=== PATIENT | male | born 1970 | race Caucasian/White ===

== ENCOUNTER 2016-09-22 15:40 | Emergency (ER) | payer MEDICAID ==
[~2016-09-22] VITALS: Ht 167.6 cm; Wt 84.4 kg
[~2016-09-22 15:40] MED LIST: AML5T PO; ASPI81CH43; ATE25T PO; BUPRTAB PO; LITH150C6 PO; RISP0.5T12 PO; TRAZ100T2 PO; VENL37.572 PO
[2016-09-22 15:44] VITALS: BP 202/100
[2016-09-22] MEDS ORDERED: cloNIDine HCL 0.1 MG TAB ONE (19:41)
== END 2016-09-22 18:25 | disposition left against medical advice (07) ==
LOC: EDBD 15:40 → ER 15:42
DX: I10 Essential (primary) hypertension (principal); R51 Headache; Z53.21 Procedure and treatment not carried out due to patient leaving prior to being seen by health care provider

== ENCOUNTER 2016-09-22 19:19 | Emergency (ER) | payer MEDICAID ==
[~2016-09-22] VITALS: Ht 167.6 cm; Wt 79.8 kg
[2016-09-22] MEDS ORDERED: cloNIDine HCL 0.1 MG TAB PO ONE (19:45)
[2016-09-22 20:16] LABS: Basophils # (auto) 0 uL; Basophils % (auto) 0.3 % (0.0-2.0); Eosinophils # (auto) 0.2 uL; Eosinophils % (auto) 1.7 % (0.0-7.0); Hematocrit 44.1 % (41.0-53.0); Hemoglobin 14.8 g/dL (13.5-17.5); Lymphocytes # (auto) 1.6 uL; Mean Corpuscular Hemoglobin 30.2 pg (28.0-32.0); Mean Corpuscular Hgb Conc. 33.6 g/dL (32.0-36.0); Mean Platelet Volume 8.2 fL (7.4-10.4); Monocytes # (auto) 0.7 uL; Neutrophils # (auto) 7.3 uL; Platelet Count (auto) 253 10^3/uL (140-450); Red Cell Distribution Width 13.8 % (11.6-16.0); White Blood Cell 9.8 10^3/uL (4.4-10.8)
[2016-09-22 20:42] LABS: Albumin 4.1 g/dL (3.4-5.0); BUN/Creatinine Ratio 13.1; Bilirubin, Total 0.4 mg/dL (0.2-1.0); Magnesium 2.4 mg/dL (1.6-2.6); Potassium 3.5 mmol/L (3.5-5.1); Total Protein 7.7 g/dL (6.4-8.2)
[2016-09-22 20:48] LABS: B-Type Natriuretic Peptide 115.64 pg/mL (0-100); Temperature: 21.9 C (20.0-25.0)
[2016-09-23] MEDS ORDERED: LABETALOL HCL 200 MG TAB PO ONE ×2 (01:15→02:45)
[2016-09-23 02:50] LABS: Urine Bilirubin Negative (Negative); Urine Blood Negative /uL (Negative); Urine Color Yellow (Yellow); Urine Glucose Normal (Normal); Urine Ketone Negative (Negative); Urine Mucus FEW (None Seen); Urine Nitrite Negative (Negative); Urine RBC 1 /hpf (0 - 3); Urine Squamous Epithelial Cell FEW /hpf (<5); Urine Urobilinogen Normal (Negative)
[2016-09-23] MEDS ORDERED: ENALAPRILAT 1.25 MG/ML-1ML VIAL IV ONE (04:15)
[2016-09-23] MEDS ORDERED: LORazepam 2MG/ML-1ML VIAL IV ONE (06:00)
[2016-09-23] MEDS ORDERED: BENAZEPRIL HCL 10 MG TAB PO ONE (07:30)
[2016-09-23] MEDS ORDERED: HCTZ 25 MG TAB PO ONE (07:30)
[2016-09-23 08:15] VITALS: BP 160/98
== END 2016-09-23 09:35 | disposition home or self-care (01) ==
LOC: ER 19:22
DX: I11.0 Hypertensive heart disease with heart failure (principal); I50.9 Heart failure, unspecified; J44.9 Chronic obstructive pulmonary disease, unspecified; F20.9 Schizophrenia, unspecified; F41.9 Anxiety disorder, unspecified; F17.210 Nicotine dependence, cigarettes, uncomplicated; F12.10 Cannabis abuse, uncomplicated; F15.10 Other stimulant abuse, uncomplicated; Z79.82 Long term (current) use of aspirin; Z59.0 Homelessness; Z88.0 Allergy status to penicillin
CPT/HCPCS: 36415; 71010; 80053; 81001; 83735; 83880; 84484; 85025; 85049; 93005; 96374; 96375; 99285; G0434; J2060

== ENCOUNTER 2016-11-06 22:36 | Inpatient (IN) | payer MEDICAID ==
[~2016-11-06] VITALS: Ht 170.2 cm; Wt 86.2 kg
[2016-11-06] MEDS ORDERED: cloNIDine HCL 0.1 MG TAB PO ONE (23:15)
[2016-11-06 23:23] LABS: Basophils # (auto) 0.1 uL; Basophils % (auto) 0.7 % (0.0-2.0); Eosinophils # (auto) 0.3 uL; Eosinophils % (auto) 2.4 % (0.0-7.0); Hematocrit 46.3 % (41.0-53.0); Lymphocytes # (auto) 1.4 uL; Lymphocytes % (auto) 12.9 % (10.0-50.0); Mean Corpuscular Hgb Conc. 34.6 g/dL (32.0-36.0); Mean Corpuscular Volume 89.7 fL (80.0-100.0); Mean Platelet Volume 8.9 fL (7.4-10.4); Monocytes % (auto) 8.9 % (0.0-12.0); Neutrophils # (auto) 8.3 uL; Neutrophils % (auto) 75.1 % (37.0-80.0); Platelet Count (auto) 213 10^3/uL (140-450); Red Cell Distribution Width 14.6 % (11.6-16.0); White Blood Cell 11.1 10^3/uL (4.4-10.8)
[2016-11-06 23:39] LABS: INR 1.06 (0.9-1.15); Partial Thromboplastin Time 27.8 sec (22.64-33.71); Prothrombin Time 10.9 sec (9.37-12.3)
[2016-11-06 23:51] LABS: Albumin 3.5 g/dL (3.4-5.0); BUN/Creatinine Ratio 9.6; Calcium 8.1 mg/dL (8.5-10.1); Magnesium 2.1 mg/dL (1.6-2.6); Potassium 3.8 mmol/L (3.5-5.1)
[2016-11-06 23:56] LABS: Bilirubin, Total 0.2 mg/dL (0.2-1.0)
[2016-11-06 23:59] LABS: Temperature: 20.4 C (20.0-25.0)
[2016-11-07] MEDS ORDERED: LORazepam 0.5 MG TAB ONE (00:11)
[2016-11-07] MEDS ORDERED: LORazepam 0.5 MG TAB PO ONE (00:15)
[2016-11-07] MEDS ORDERED: LABETALOL HCL 200 MG TAB PO ONE (04:30)
[2016-11-07] MEDS ORDERED: HYDROcodone-ACET 5/325MG TAB PO PRN (06:45)
[2016-11-07] MEDS ORDERED: ONDANSETRON HCL 4 MG/2 ML VIAL IV PRN (06:45)
[2016-11-07] MEDS ORDERED: ACETAMINOPHEN 325 MG TAB PO PRN (06:45)
[2016-11-07] MEDS: amLODIPine BESYLATE 5 MG TAB PO SCH ×2 (06:46→10:00)
[2016-11-07 06:58] LABS: Urine Bilirubin Negative (Negative); Urine Blood Negative /uL (Negative); Urine Color Yellow (Yellow); Urine Glucose Normal (Normal); Urine Ketone Negative (Negative); Urine Nitrite Negative (Negative); Urine RBC <1 /hpf (0 - 3); Urine Urobilinogen Normal (Negative); Urine pH 6.5 (5.0-8.0)
[2016-11-07] MEDS: ATENOLOL 25 MG TAB PO SCH ×2 (08:29→22:15)
[2016-11-07] MEDS: FAMOTIDINE 20 MG TAB PO SCH ×2 (09:31→22:14)
[2016-11-07] MEDS: LITHIUM CARBONATE 300 MG TAB PO SCH ×2 (09:31→22:14)
[2016-11-07] MEDS: ENOXAPARIN SOD 40 MG/0.4 ML SYRINGE SC SCH (09:32)
[2016-11-07] MEDS: risperiDONE 1 MG TAB PO SCH (09:32)
[2016-11-07] MEDS: ASPirin 81 mg TAB PO SCH (09:32)
[2016-11-07] MEDS: cloNIDine HCL 0.1 MG TAB PO PRN ×2 (11:07→22:15)
[2016-11-07] MEDS ORDERED: hydrALAZINE HCL 20 MG/ML VL ONE (11:15)
[2016-11-07] MEDS ORDERED: buPROPion HCL 100 MG TAB PO ONE (11:30)
[2016-11-07] MEDS ORDERED: LEVOFLOXACIN 250 MG TAB PO ONE (11:30)
[2016-11-07] MEDS ORDERED: hydrALAZINE HCL 20 MG/ML VL IV PRN (11:30)
[2016-11-07 15:30] VITALS: BP 139/83
[2016-11-07] MEDS: traZODone HCL 50 MG TAB PO SCH (22:14)
[2016-11-08 05:12] VITALS: BP 157/89
[2016-11-08] MEDS: buPROPion HCL 100 MG TAB PO SCH ×3 (05:57→22:09)
[2016-11-08] MEDS: cloNIDine HCL 0.1 MG TAB PO PRN (06:04)
[2016-11-08 06:35] LABS: Basophils # (auto) 0.1 uL; Basophils % (auto) 0.8 % (0.0-2.0); Eosinophils # (auto) 0.3 uL; Eosinophils % (auto) 3.7 % (0.0-7.0); Hematocrit 46.3 % (41.0-53.0); Hemoglobin 16.1 g/dL (13.5-17.5); Lymphocytes # (auto) 1.6 uL; Mean Corpuscular Hemoglobin 30.9 pg (28.0-32.0); Mean Corpuscular Hgb Conc. 34.8 g/dL (32.0-36.0); Mean Corpuscular Volume 88.7 fL (80.0-100.0); Mean Platelet Volume 8.8 fL (7.4-10.4); Monocytes # (auto) 0.6 uL; Monocytes % (auto) 7.5 % (0.0-12.0); Neutrophils # (auto) 5.6 uL; Platelet Count (auto) 204 10^3/uL (140-450); Red Cell Distribution Width 14.3 % (11.6-16.0); White Blood Cell 8.2 10^3/uL (4.4-10.8)
[2016-11-08 07:38] LABS: Albumin 3.4 g/dL (3.4-5.0); Alkaline Phosphatase 92 U/L (45-117); Anion Gap 10 (5-15); Aspartate Aminotransferase 16 U/L (15-37); BUN/Creatinine Ratio 10.3; Bilirubin, Total 0.4 mg/dL (0.2-1.0); Blood Urea Nitrogen 13 mg/dL (7-18); Calcium 9.2 mg/dL (8.5-10.1); Carbon Dioxide 28 mmol/L (21-32); Chloride 107 mmol/L (98-107); GFR African American 79 mL/min; GFR Non-African American 65 mL/min; Glucose 88 mg/dL (74-106); Sodium 145 mmol/L (136-145)
[2016-11-08 09:00] VITALS: BP 161/106
[2016-11-08] MEDS ORDERED: LEVOFLOXACIN 250 MG TAB PO SCH (10:00)
[2016-11-08] MEDS ORDERED: buPROPion HCL 100 MG TAB PO SCH (10:00)
[2016-11-08] MEDS: risperiDONE 1 MG TAB PO SCH (10:10)
[2016-11-08] MEDS: FAMOTIDINE 20 MG TAB PO SCH ×2 (10:10→22:09)
[2016-11-08] MEDS: ASPirin 81 mg TAB PO SCH (10:10)
[2016-11-08] MEDS: ENOXAPARIN SOD 40 MG/0.4 ML SYRINGE SC SCH (10:10)
[2016-11-08] MEDS: LITHIUM CARBONATE 300 MG TAB PO SCH ×2 (10:10→22:09)
[2016-11-08] MEDS: amLODIPine BESYLATE 5 MG TAB PO SCH (10:11)
[2016-11-08] MEDS: ATENOLOL 25 MG TAB PO SCH ×2 (10:11→22:12)
[2016-11-08] MEDS ORDERED: HCTZ 25 MG TAB PO ONE (10:45)
[2016-11-08 13:00] VITALS: BP 140/92
[2016-11-08] MEDS: VENLAFAXINE HCL 37.5mg XR cap PO SCH (13:34)
[2016-11-08 17:00] VITALS: BP 148/85
[2016-11-08 20:00] VITALS: BP 96/52
[2016-11-08 22:00] VITALS: BP 150/88
[2016-11-08] MEDS: traZODone HCL 50 MG TAB PO SCH (22:08)
[2016-11-09 05:00] VITALS: BP 144/82
[2016-11-09] MEDS: buPROPion HCL 100 MG TAB PO SCH ×2 (05:41→13:18)
[2016-11-09 09:00] VITALS: BP 178/106
[2016-11-09] MEDS: LITHIUM CARBONATE 300 MG TAB PO SCH (09:19)
[2016-11-09] MEDS: ATENOLOL 25 MG TAB PO SCH (09:19)
[2016-11-09] MEDS: risperiDONE 1 MG TAB PO SCH (09:20)
[2016-11-09] MEDS: ASPirin 81 mg TAB PO SCH (09:20)
[2016-11-09] MEDS: amLODIPine BESYLATE 5 MG TAB PO SCH (09:20)
[2016-11-09] MEDS: VENLAFAXINE HCL 37.5mg XR cap PO SCH (09:21)
[2016-11-09] MEDS: ENOXAPARIN SOD 40 MG/0.4 ML SYRINGE SC SCH (09:21)
[2016-11-09] MEDS: FAMOTIDINE 20 MG TAB PO SCH (09:21)
[2016-11-09] MEDS ORDERED: HCTZ 25 MG TAB PO SCH (10:00)
[2016-11-09 13:00] VITALS: BP 157/99
[2016-11-09 17:00] VITALS: BP 152/92
== END 2016-11-09 18:30 | disposition home or self-care (01) | DRG 194 ==
LOC: EDBD 22:36 → ER 22:40 → OVERFLOW 22:41 → CENTRAL 11-07 15:00
PROVIDERS: ADMIT Internal Medicine; ATTEND Internal Medicine
DX: I11.0 Hypertensive heart disease with heart failure (principal); J44.9 Chronic obstructive pulmonary disease, unspecified; I50.9 Heart failure, unspecified; F31.9 Bipolar disorder, unspecified; F12.90 Cannabis use, unspecified, uncomplicated; R74.8 Abnormal levels of other serum enzymes; F17.210 Nicotine dependence, cigarettes, uncomplicated; D64.9 Anemia, unspecified; F20.9 Schizophrenia, unspecified; F15.90 Other stimulant use, unspecified, uncomplicated; Z59.0 Homelessness; Z91.14 Patient's other noncompliance with medication regimen; Z88.0 Allergy status to penicillin; Z79.899 Other long term (current) drug therapy; Z79.82 Long term (current) use of aspirin; Z82.49 Family history of ischemic heart disease and other diseases of the circulatory system; Z83.3 Family history of diabetes mellitus
CPT/HCPCS: 36415; 80053; 80178; 81001; 83735; 83880; 84443; 84484; 85025; 85610; 85730; 87086; 93005; 96372; G0434

== ENCOUNTER 2017-01-06 17:27 | Observation (INO) | payer MEDICAID ==
[~2017-01-06] VITALS: Ht 167.6 cm; Wt 81.6 kg
[~2017-01-06 17:27] MED LIST changes: -VENL37.572 PO
[2017-01-06] MEDS ORDERED: SODIUM CHLORIDE 0.9% 2,000 ML IV ONE (18:00)
[2017-01-06 18:13] LABS: Basophils # (auto) 0 uL; Basophils % (auto) 0.3 % (0.0-2.0); Eosinophils # (auto) 0.1 uL; Eosinophils % (auto) 0.7 % (0.0-7.0); Hematocrit 40.4 % (41.0-53.0); Hemoglobin 13.6 g/dL (13.5-17.5); Lymphocytes # (auto) 1.1 uL; Lymphocytes % (auto) 9.2 % (10.0-50.0); Mean Corpuscular Hemoglobin 30.3 pg (28.0-32.0); Mean Corpuscular Hgb Conc. 33.6 g/dL (32.0-36.0); Mean Corpuscular Volume 89.9 fL (80.0-100.0); Mean Platelet Volume 9.5 fL (7.4-10.4); Neutrophils # (auto) 10.1 uL; Neutrophils % (auto) 81.8 % (37.0-80.0); Platelet Count (auto) 216 10^3/uL (140-450); White Blood Cell 12.3 10^3/uL (4.4-10.8)
[2017-01-06 18:30] LABS: Albumin 3.5 g/dL (3.4-5.0); BUN/Creatinine Ratio 12.3; Bilirubin, Total 0.6 mg/dL (0.2-1.0); Calcium 8.8 mg/dL (8.5-10.1); Total Protein 7.1 g/dL (6.4-8.2)
[2017-01-06] MEDS ORDERED: SODIUM CHLORIDE 0.9% 1,000 ML IVB ONE (19:49)
[2017-01-06] MEDS ORDERED: POTASSIUM CHL 20 Meq TABLET PO ONE (20:45)
[2017-01-06 20:49] LABS: Urine Bilirubin Negative (Negative); Urine Blood Negative /uL (Negative); Urine Color Yellow (Yellow); Urine Glucose Normal (Normal); Urine Ketone TRACE (Negative); Urine Mucus FEW (None Seen); Urine Nitrite Negative (Negative); Urine RBC <1 /hpf (0 - 3); Urine pH 5.5 (5.0-8.0)
[2017-01-07] MEDS ORDERED: cloNIDine HCL 0.1 MG TAB PO ONE (07:45)
[2017-01-07] MEDS ORDERED: amLODIPine BESYLATE 5 MG TAB PO ONE (09:15)
[2017-01-07] MEDS ORDERED: amLODIPine BESYLATE 5 MG TAB ONE (09:21)
[2017-01-07 11:58] LABS: Basophils # (auto) 0 uL; Basophils % (auto) 0.5 % (0.0-2.0); Eosinophils # (auto) 0.2 uL; Eosinophils % (auto) 2.6 % (0.0-7.0); Hematocrit 40.1 % (41.0-53.0); Hemoglobin 13.5 g/dL (13.5-17.5); Lymphocytes # (auto) 1.4 uL; Lymphocytes % (auto) 17.3 % (10.0-50.0); Mean Corpuscular Hemoglobin 30.3 pg (28.0-32.0); Mean Corpuscular Hgb Conc. 33.7 g/dL (32.0-36.0); Mean Corpuscular Volume 90.1 fL (80.0-100.0); Mean Platelet Volume 8.8 fL (7.4-10.4); Monocytes # (auto) 0.6 uL; Neutrophils # (auto) 5.8 uL; Neutrophils % (auto) 72.6 % (37.0-80.0); Platelet Count (auto) 201 10^3/uL (140-450); White Blood Cell 7.9 10^3/uL (4.4-10.8)
[2017-01-07 12:30] LABS: Acetaminophen 2.5 ug/mL (10-30); Salicylate 2.4 mg/dL (2.8-20.0)
[2017-01-07 12:31] LABS: Albumin 2.9 g/dL (3.4-5.0); Alkaline Phosphatase 81 U/L (45-117); Anion Gap 8 (5-15); Aspartate Aminotransferase 34 U/L (15-37); BUN/Creatinine Ratio 10.9; Bilirubin, Total 0.6 mg/dL (0.2-1.0); Blood Urea Nitrogen 13 mg/dL (7-18); Calcium 8.4 mg/dL (8.5-10.1); Carbon Dioxide 28 mmol/L (21-32); Chloride 108 mmol/L (98-107); GFR African American 84 mL/min; GFR Non-African American 69 mL/min; Glucose 96 mg/dL (74-106); Potassium 3.8 mmol/L (3.5-5.1); Sodium 144 mmol/L (136-145); Total Protein 6.2 g/dL (6.4-8.2)
[2017-01-07 15:44] VITALS: BP 144/87
== END 2017-01-07 16:51 | disposition home or self-care (01) | DRG 756 ==
LOC: ER 17:33 → OVERFLOW 19:51
PROVIDERS: ADMIT Family Medicine; ATTEND Family Medicine
DX: R45.851 Suicidal ideations (principal); F31.9 Bipolar disorder, unspecified; F17.210 Nicotine dependence, cigarettes, uncomplicated
CPT/HCPCS: 36415; 71010; 80053; 80307; 80320; 80329; 81001; 85025; 93005; 96360; 96361; 99285; G0378; J7030

== ENCOUNTER 2017-01-12 04:43 | Emergency (ER) | payer MEDICAID ==
[~2017-01-12] VITALS: Ht 167.6 cm; Wt 81.6 kg
[2017-01-12] MEDS ORDERED: ASPirin 81 mg TAB PO ONE (05:00)
[2017-01-12] MEDS ORDERED: MORPHINE SULF INJ 2 MG/ML SYRINGE 1ML IV ONE (05:00)
[2017-01-12] MEDS ORDERED: ONDANSETRON HCL 4 MG/2 ML VIAL IV ONE (05:00)
[2017-01-12 05:34] LABS: BUN/Creatinine Ratio 8.9; Potassium 3.5 mmol/L (3.5-5.1)
[2017-01-12 05:36] LABS: Basophils # (auto) 0.1 uL; Eosinophils # (auto) 0.2 uL; Eosinophils % (auto) 2.9 % (0.0-7.0); Hemoglobin 15.4 g/dL (13.5-17.5); Lymphocytes # (auto) 0.9 uL; Lymphocytes % (auto) 12.2 % (10.0-50.0); Mean Corpuscular Hemoglobin 30.5 pg (28.0-32.0); Mean Corpuscular Hgb Conc. 33.4 g/dL (32.0-36.0); Mean Corpuscular Volume 91.2 fL (80.0-100.0); Mean Platelet Volume 10.1 fL (7.4-10.4); Monocytes # (auto) 0.5 uL; Monocytes % (auto) 6.5 % (0.0-12.0); Neutrophils % (auto) 77.4 % (37.0-80.0); Platelet Count (auto) 107 10^3/uL (140-450); Red Cell Distribution Width 14.6 % (11.6-16.0); White Blood Cell 7.7 10^3/uL (4.4-10.8)
[2017-01-12 05:39] LABS: Bilirubin, Total 0.4 mg/dL (0.2-1.0); Total Protein 7.8 g/dL (6.4-8.2)
[2017-01-12 05:51] LABS: INR 1.03 (0.9-1.15); Partial Thromboplastin Time 24.7 sec (22.64-33.71); Prothrombin Time 11.1 sec (9.37-12.3)
[2017-01-12 06:25] LABS: B-Type Natriuretic Peptide 73.7 pg/mL (0-100)
[2017-01-12] MEDS ORDERED: SODIUM CHLORIDE 0.9% 250 ML IV ONE (07:55)
[2017-01-12] MEDS ORDERED: cloNIDine HCL 0.1 MG TAB PO ONE (08:00)
[2017-01-12 12:05] VITALS: BP 154/99
== END 2017-01-12 13:34 | disposition home or self-care (01) ==
LOC: ER 04:43
DX: R07.89 Other chest pain (principal); I10 Essential (primary) hypertension; F17.210 Nicotine dependence, cigarettes, uncomplicated; F12.10 Cannabis abuse, uncomplicated; F15.10 Other stimulant abuse, uncomplicated; F14.10 Cocaine abuse, uncomplicated; R06.02 Shortness of breath; Z91.14 Patient's other noncompliance with medication regimen; Z79.82 Long term (current) use of aspirin; Z88.0 Allergy status to penicillin; Z59.0 Homelessness
CPT/HCPCS: 36415; 71010; 80053; 83735; 83880; 84484; 85025; 85610; 85730; 93005; 94761

== ENCOUNTER 2017-01-13 03:00 | Emergency (ER) | payer MEDICAID ==
[~2017-01-13] VITALS: Ht 172.7 cm; Wt 95.3 kg
[2017-01-13] MEDS ORDERED: cloNIDine HCL 0.1 MG TAB ONE (03:32)
[2017-01-13] MEDS ORDERED: cloNIDine HCL 0.1 MG TAB PO ONE (04:00)
[2017-01-13 05:40] VITALS: BP 157/121
== END 2017-01-13 06:12 ==
LOC: EEVIPCON 03:00 → ER 03:00
DX: I10 Essential (primary) hypertension (principal); F12.10 Cannabis abuse, uncomplicated; F15.10 Other stimulant abuse, uncomplicated; F14.10 Cocaine abuse, uncomplicated; F17.210 Nicotine dependence, cigarettes, uncomplicated; Z91.14 Patient's other noncompliance with medication regimen; Z59.0 Homelessness; Z79.82 Long term (current) use of aspirin; Z88.0 Allergy status to penicillin

== ENCOUNTER 2017-03-19 11:44 | Inpatient (IN) | payer MEDICAID ==
[~2017-03-19] VITALS: Ht 170.2 cm; Wt 97.5 kg
[2017-03-19 12:42] LABS: Allen Test Yes; Base Excess 0.9 mmol/L (-2.0-2.0); Blood COHb 5.5 % (0.5-1.5); Blood MetHb 0.2 % (0.0-1.5); HCO3 25.1 mmol/L (22-26.0); HHb 14.1 % (0.0-5.0); MODE ROOM AIR; O2Hb 80.2 % (94.0-97.0); PCO2 38.8 mmHg (35.0-45.0); PCO2(T) 38.8 mmHg (35.0-45.0); PO2 48.9 mmHg (80.0-100.0); PO2(T) 48.9 mmHg (80.0-100.0); Sample Type Arterial; pH 7.429 (7.350-7.450)
[2017-03-19 12:44] LABS: Basophils # (auto) 0 uL; Basophils % (auto) 0.5 % (0.0-2.0); CONDITION Y; Eosinophils # (auto) 0 uL; Eosinophils % (auto) 0.4 % (0.0-7.0); Hematocrit 41.9 % (41.0-53.0); Hemoglobin 14.3 g/dL (13.5-17.5); Lymphocytes # (auto) 1.2 uL; Lymphocytes % (auto) 15.4 % (10.0-50.0); Mean Corpuscular Hemoglobin 30.8 pg (28.0-32.0); Mean Corpuscular Hgb Conc. 34.1 g/dL (32.0-36.0); Mean Corpuscular Volume 90.3 fL (80.0-100.0); Mean Platelet Volume 8.9 fL (7.4-10.4); Monocytes # (auto) 0.5 uL; Monocytes % (auto) 5.9 % (0.0-12.0); Neutrophils # (auto) 6.1 uL; Neutrophils % (auto) 77.8 % (37.0-80.0); Platelet Count (auto) 181 10^3/uL (140-450); Red Cell Distribution Width 14.3 % (11.6-16.0); White Blood Cell 7.8 10^3/uL (4.4-10.8)
[2017-03-19 13:10] LABS: Albumin 3.3 g/dL (3.4-5.0); Anion Gap 9 (5-15); Blood Urea Nitrogen 17 mg/dL (7-18); Calcium 8.5 mg/dL (8.5-10.1); Carbon Dioxide 26 mmol/L (21-32); Chloride 111 mmol/L (98-107); Glucose 65 mg/dL (74-106); Magnesium 2.3 mg/dL (1.6-2.6); Potassium 3.6 mmol/L (3.5-5.1); Sodium 146 mmol/L (136-145)
[2017-03-19 13:12] LABS: Acetaminophen < 2.0 ug/mL (10-30)
[2017-03-19 13:13] LABS: Aspartate Aminotransferase 10 U/L (15-37); BUN/Creatinine Ratio 16.3; GFR African American 98 mL/min; GFR Non-African American 81 mL/min
[2017-03-19 13:15] LABS: Alkaline Phosphatase 83 U/L (45-117); Bilirubin, Total 0.2 mg/dL (0.2-1.0); Total Protein 6.8 g/dL (6.4-8.2)
[2017-03-19] MEDS ORDERED: MORPHINE SULF INJ 2 MG/ML SYRINGE 1ML IV PRN (15:15)
[2017-03-19] MEDS ORDERED: NITROGLYCERIN 0.4 MG SL TAB SL PRN (15:15)
[2017-03-19] MEDS: D5W/SOD CHL 0.45%/KCL 20MEQ 1,000 ML IV SCH (15:45)
[2017-03-19] MEDS: LABETALOL HCL 5 MG/ML 4ML SYRINGE IV PRN ×2 (15:45→18:27)
[2017-03-19] MEDS: hydrALAZINE HCL 20 MG/ML VL IV PRN (18:27)
[2017-03-19 22:29] LABS: Urine Bilirubin Negative (Negative); Urine Blood Negative /uL (Negative); Urine Color Yellow (Yellow); Urine Glucose Normal (Normal); Urine Ketone Negative (Negative); Urine Nitrite Negative (Negative); Urine RBC <1 /hpf (0 - 3); Urine Urobilinogen Normal (Negative); Urine pH 6.5 (5.0-8.0)
[2017-03-20] MEDS: D5W/SOD CHL 0.45%/KCL 20MEQ 1,000 ML IV SCH ×3 (01:19→21:15)
[2017-03-20] MEDS: hydrALAZINE HCL 20 MG/ML VL IV PRN ×2 (03:22→09:42)
[2017-03-20] MEDS ORDERED: HALOPERIDOL LACTATE 5 MG/ML INJ VIAL ONE (04:31)
[2017-03-20] MEDS ORDERED: HALOPERIDOL LACTATE 5 MG/ML INJ VIAL IM ONE (04:45)
[2017-03-20] MEDS ORDERED: LORazepam 2MG/ML-1ML VIAL IV ONE (05:00)
[2017-03-20 09:45] LABS: Basophils # (auto) 0.1 uL; Basophils % (auto) 0.6 % (0.0-2.0); CONDITION Y; Eosinophils # (auto) 0.2 uL; Eosinophils % (auto) 1.9 % (0.0-7.0); Hematocrit 44.2 % (41.0-53.0); Hemoglobin 15.2 g/dL (13.5-17.5); Lymphocytes # (auto) 1.1 uL; Mean Corpuscular Hemoglobin 30.7 pg (28.0-32.0); Mean Corpuscular Hgb Conc. 34.3 g/dL (32.0-36.0); Mean Corpuscular Volume 89.7 fL (80.0-100.0); Mean Platelet Volume 8.8 fL (7.4-10.4); Monocytes # (auto) 0.5 uL; Monocytes % (auto) 6.3 % (0.0-12.0); Neutrophils # (auto) 6.2 uL; Neutrophils % (auto) 77.2 % (37.0-80.0); Platelet Count (auto) 181 10^3/uL (140-450); Red Cell Distribution Width 15.1 % (11.6-16.0); White Blood Cell 8.1 10^3/uL (4.4-10.8)
[2017-03-20 10:03] LABS: Albumin 2.9 g/dL (3.4-5.0); BUN/Creatinine Ratio 14.2; Bilirubin, Total 0.4 mg/dL (0.2-1.0); Calcium 8.5 mg/dL (8.5-10.1); Potassium 3.6 mmol/L (3.5-5.1); Total Protein 6.1 g/dL (6.4-8.2)
[2017-03-20] MEDS ORDERED: cloNIDine HCL 0.1 MG TAB PO PRN (12:45)
[2017-03-20] MEDS ORDERED: LEVOFLOXACIN 500 MG TAB PO ONE (12:45)
[2017-03-20] MEDS: BOOST PLUS 8 ounce PO SCH ×2 (18:44→22:00)
[2017-03-20] MEDS: MAGNESIUM SULFATE 1GM/100ML 100 ML IV SCH (23:00)
[2017-03-21] MEDS: MAGNESIUM SULFATE 1GM/100ML 100 ML IV SCH (00:02)
[2017-03-21] MEDS: hydrALAZINE HCL 20 MG/ML VL IV PRN (04:55)
[2017-03-21] MEDS: BOOST PLUS 8 ounce PO SCH ×2 (06:00→13:03)
[2017-03-21] MEDS: LABETALOL HCL 5 MG/ML 4ML SYRINGE IV PRN (06:34)
[2017-03-21 06:43] LABS: Basophils # (auto) 0 uL; Basophils % (auto) 0.5 % (0.0-2.0); CONDITION Y; Eosinophils # (auto) 0.2 uL; Eosinophils % (auto) 2.7 % (0.0-7.0); Hemoglobin 15.9 g/dL (13.5-17.5); Lymphocytes # (auto) 1.2 uL; Lymphocytes % (auto) 16.4 % (10.0-50.0); Mean Corpuscular Hemoglobin 31.4 pg (28.0-32.0); Mean Corpuscular Hgb Conc. 34.5 g/dL (32.0-36.0); Mean Corpuscular Volume 90.9 fL (80.0-100.0); Mean Platelet Volume 9.3 fL (7.4-10.4); Monocytes # (auto) 0.7 uL; Monocytes % (auto) 9.7 % (0.0-12.0); Neutrophils # (auto) 5.1 uL; Neutrophils % (auto) 70.7 % (37.0-80.0); Platelet Count (auto) 178 10^3/uL (140-450); Red Cell Distribution Width 15.3 % (11.6-16.0); White Blood Cell 7.3 10^3/uL (4.4-10.8)
[2017-03-21 07:15] LABS: Albumin 3.2 g/dL (3.4-5.0); BUN/Creatinine Ratio 19.4; Bilirubin, Total 0.4 mg/dL (0.2-1.0); Calcium 8.4 mg/dL (8.5-10.1); Potassium 3.6 mmol/L (3.5-5.1); Total Protein 6.4 g/dL (6.4-8.2)
[2017-03-21 09:39] LABS: Magnesium 2.8 mg/dL (1.6-2.6)
[2017-03-21] MEDS ORDERED: LEVOFLOXACIN 500 MG TAB PO SCH (10:00)
[2017-03-21] MEDS: D5W/SOD CHL 0.45%/KCL 20MEQ 1,000 ML IV SCH (11:58)
[2017-03-21] MEDS ORDERED: ATENOLOL 25 MG TAB PO ONE (13:00)
[2017-03-21] MEDS ORDERED: amLODIPine BESYLATE 5 MG TAB PO ONE (13:00)
[2017-03-21] MEDS ORDERED: cloNIDine HCL 0.1 MG TAB PO ONE (15:00)
[2017-03-21 16:09] VITALS: BP 164/123
[2017-03-22] MEDS ORDERED: cloNIDine HCL 0.1 MG TAB ONE (01:48)
[2017-03-22] MEDS ORDERED: amLODIPine BESYLATE 5 MG TAB PO SCH (10:00)
[2017-03-22] MEDS ORDERED: ATENOLOL 25 MG TAB PO SCH (10:00)
== END 2017-03-21 16:50 | disposition left against medical advice (07) | DRG 812 ==
LOC: ER 11:44 → EDBD 11:44 → EDUNIT# 11:44 → TELE 11:45
PROVIDERS: ADMIT Internal Medicine; ATTEND Internal Medicine
DX: T50.902A Poisoning by unspecified drugs, medicaments and biological substances, intentional self-harm, initial encounter (principal); E43 Unspecified severe protein-calorie malnutrition; E87.0 Hyperosmolality and hypernatremia; N18.3 Chronic kidney disease, stage 3 (moderate); I12.9 Hypertensive chronic kidney disease with stage 1 through stage 4 chronic kidney disease, or unspecified chronic kidney disease; F20.9 Schizophrenia, unspecified; F31.9 Bipolar disorder, unspecified; F41.9 Anxiety disorder, unspecified; J44.9 Chronic obstructive pulmonary disease, unspecified; E16.2 Hypoglycemia, unspecified; F17.210 Nicotine dependence, cigarettes, uncomplicated; Z59.0 Homelessness; Z68.33 Body mass index [BMI] 33.0-33.9, adult
CPT/HCPCS: 36415; 36600; 70450; 71010; 80053; 80164; 80178; 80307; 80320; 80329; 81001; 82140; 82550; 82553; 82805; 83735; 85025; 93005; 94761; 96372; 96374; 96375; A4565; J3490

== ENCOUNTER 2017-03-21 16:49 | Emergency (ER) | payer MEDICAID ==
[~2017-03-21] VITALS: Ht 167.6 cm; Wt 81.6 kg
[2017-03-21] MEDS: cloNIDine HCL 0.1 MG TAB PO ONE (18:15)
[2017-03-22 01:54] VITALS: BP 170/104
[2017-03-22] MEDS: cloNIDine HCL 0.1 MG TAB PO ONE (02:05)
== END 2017-03-22 01:06 | disposition short-term general hospital (02) ==
LOC: ER 16:52
DX: F20.89 Other schizophrenia (principal); R45.851 Suicidal ideations; I10 Essential (primary) hypertension; F32.9 Major depressive disorder, single episode, unspecified; F17.210 Nicotine dependence, cigarettes, uncomplicated; F12.10 Cannabis abuse, uncomplicated; F15.10 Other stimulant abuse, uncomplicated; F14.10 Cocaine abuse, uncomplicated; Z59.0 Homelessness; Z88.0 Allergy status to penicillin; Z91.030 Bee allergy status